=== PATIENT | male | born 1955 | race Caucasian/White ===

== ENCOUNTER 2017-12-14 10:10 | Day surgery (SDC) | payer OTHER ==
[2017-12-11 15:55] VITALS: BMI 37.8
[~2017-12-14 10:10] MED LIST: LACTATED RINGERS 1,000 ML IV SCH
[2017-12-14 11:04] VITALS: TEMP 97.1
[2017-12-14] MEDS ORDERED: LIDOCAINE 1% 20 ML VIAL (10MG/ML) FOR IV START INTRADERMA ONE (11:08)
[2017-12-14] MEDS ORDERED: MIDAZOLAM 2 MG/2 ML VIAL ONE (11:49)
[2017-12-14] MEDS ORDERED: PROPOFOL 10 MG/ML 20 ML VIAL IV ONE (11:49)
[2017-12-14] MEDS ORDERED: LIDOCAINE 1% INJ 10MG/ML (20 ML MDV) ONE (11:49)
[2017-12-14] MEDS ORDERED: fentaNYL (PF) 50 MCG/ML 2 ML AMP ONE (11:49)
--- NOTE | 2017-12-14 12:10 | P.PCN ---
Date of Procedure: 12/14/17 Procedure(s) Performed: Brief history: Patient is a pleasant 62-year-old white male, scheduled for an elective upper endoscopy as well as colonoscopy as a part of evaluation of GERD and screening for colon cancer Procedure performed: Esophagogastroduodenoscopy with biopsy Colonoscopy Preoperative diagnosis: GERD Screening for colon cancer Anesthesia: MAC Procedure: After informed consent was obtained from the patient was brought into the endoscopy unit and IV sedation was administered by anesthesia under continuous monitoring. Initially upper endoscopy was done. The Olympus GF 160 video endoscope was inserted inserted into the mouth and esophagus intubated without any difficulty and was gradually advanced into the stomach and duodenum and carefully examined. The bulb and second part of the duodenum appeared normal. The scope was then withdrawn into the stomach adequately insufflated with air and upon careful examination the antrum and body, cardia and fundus appeared normal. Multiple small gastric polyps were located in the body of the stomach which were biopsied. The scope was then withdrawn into the esophagus. The GE junction was located at 40 cm to the incisors. It appeared regular with no erythema erosions or ulcerations. Rest of the esophagus appeared normal. Patient tolerated the procedure well. At this time the patient continued to remain sedation. Initial digital rectal examination was normal. Olympus CF 160 video colonoscope was then inserted into the rectum and gradually advanced to the cecum without any difficulty. Careful examination was performed as the scope was gradually being withdrawn. The prep was excellent. The cecum, ascending colon, transverse colon, descending colon, sigmoid colon and rectum appeared normal. Scattered sigmoid diverticulosis seen. Retroflexion was performed in the rectum and no lesions were noted. Patient tolerated the procedure well. Impression: 1. Upper endoscopy revealed multiple small gastric polyps but no evidence of esophagitis or Escobar's esophagus 2. Colonoscopy revealed scattered sigmoid diverticulosis but no evidence of colorectal neoplasia Recommendations: Findings of this examination were discussed with the patient as well as his family. He was advised to follow with the biopsy results. He can continue with Prilosec 20 mg daily and follow antireflux measures. He can have a repeat screening colonoscopy in 10 years
[2017-12-14 12:33] VITALS: BP 138/78; PULSE 61; RESP 20
== END 2017-12-14 12:59 | disposition home or self-care (01) ==
LOC: ORWHC2ENDO 10:10
PROVIDERS: ATTEND Internal Medicine Gastroenterology
DX: Z12.11 Encounter for screening for malignant neoplasm of colon (principal); K57.30 Diverticulosis of large intestine without perforation or abscess without bleeding; K21.9 Gastro-esophageal reflux disease without esophagitis; K31.7 Polyp of stomach and duodenum; I10 Essential (primary) hypertension; E78.5 Hyperlipidemia, unspecified; G43.909 Migraine, unspecified, not intractable, without status migrainosus; Z79.82 Long term (current) use of aspirin; Z79.899 Other long term (current) drug therapy
CPT/HCPCS: 43239; 88305; G0121; J2250; J2001; J3010; J2704

== ENCOUNTER → 2020-03-31 | Outpatient (CLI) | payer MEDICARE ==
--- NOTE | 2020-03-31 08:42 | CT ---
EXAMINATION TYPE: CT hand RT wo con DATE OF EXAM: 03/31/2020 COMPARISON: None HISTORY: Rt hand pain CT DLP: 164.5 mGycm Automated exposure control for dose reduction was used. Unenhanced CT of the right hand was performed with bone and soft tissue window settings submitted. Coronal sagittal and axial images are submitted for review as well as 3-D imaging which was performed at a separate workstation. 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 There is narrowing of the radiocarpal joint space. Degenerative narrowing of the metatarsophala ngeal joints and PIP and DIP joints throughout. I do not see evidence for fracture or dislocation. No soft tissue mass is identified. No fluid collections are seen. IMPRESSION: DEGENERATIVE CHANGES NOTED.
== END | disposition home or self-care (01) ==
LOC: RADCTMAIN 07:01
PROVIDERS: ATTEND Orthopaedic Surgery
DX: M19.041 Primary osteoarthritis, right hand (principal); M79.641 Pain in right hand

== ENCOUNTER → 2020-05-07 | Outpatient (CLI) | payer MEDICARE | END | disposition home or self-care (01) | LOC: LABWHC1 12:13 | PROVIDERS: ATTEND Family Medicine | DX: R43.8 Other disturbances of smell and taste (principal) | CPT/HCPCS: U0003; C9803 ==